=== PATIENT | female | born 2000 | race Caucasian/White ===

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

== ENCOUNTER 2024-01-14 16:36 | Emergency (ER) | payer MEDICAID ==
[~2024-01-14] VITALS: Ht 167.6 cm; Wt 79.5 kg
[2024-01-14 17:20] VITALS: PULSE 90; RESP 14; O2SAT 99
[2024-01-14 19:40] VITALS: PULSE 87; RESP 16; TEMP 97.9; O2SAT 96
[2024-01-14] MEDS: HYDROcodone-ACET 10/325MG TAB PO ONE (19:56)
[2024-01-14] MEDS ORDERED: CEPH500C PO (21:08)
[2024-01-14] MEDS ORDERED: ACET500T58 PO (21:08)
[2024-01-14] MEDS ORDERED: IBUP-1455 PO (21:08)
[2024-01-14] MEDS: CEPHALEXIN 250 MG CAP PO ONE (21:35)
[2024-01-14 21:45] VITALS: BP 123/63; PULSE 80; RESP 16; O2SAT 97
== END 2024-01-14 21:47 | disposition home or self-care (01) ==
LOC: EDBD 16:36 → ER 16:36
DX: S01.01XA Laceration without foreign body of scalp, initial encounter (principal); Y04.2XXA Assault by strike against or bumped into by another person, initial encounter; Y93.89 Activity, other specified; Y92.89 Other specified places as the place of occurrence of the external cause; Y99.8 Other external cause status
CPT/HCPCS: 12002; 70450

== ENCOUNTER 2024-01-26 07:54 | Emergency (ER) | payer MEDICAID ==
[~2024-01-26] VITALS: Ht 162.6 cm; Wt 74.1 kg
[~2024-01-26 07:54] MED LIST: ACET500T58 PO; CEPH500C PO; IBUP-1455 PO
[2024-01-26 11:03] VITALS: BP 119/72; PULSE 74; RESP 16; TEMP 98.6; O2SAT 99
== END 2024-01-26 11:06 | disposition home or self-care (01) ==
LOC: ER 07:54
DX: S01.01XD Laceration without foreign body of scalp, subsequent encounter (principal); Z48.02 Encounter for removal of sutures; F12.10 Cannabis abuse, uncomplicated

== ENCOUNTER 2024-02-16 11:57 | Emergency (ER) | payer MEDICAID ==
[~2024-02-16] VITALS: Ht 162.6 cm; Wt 72.9 kg
[2024-02-16 12:11] VITALS: BP 127/82; PULSE 103; RESP 20; O2SAT 98
== END 2024-02-16 16:42 | disposition left against medical advice (07) ==
LOC: ER 11:57
DX: R10.9 Unspecified abdominal pain (principal); R35.0 Frequency of micturition; R11.2 Nausea with vomiting, unspecified; R68.83 Chills (without fever); Z53.21 Procedure and treatment not carried out due to patient leaving prior to being seen by health care provider